=== PATIENT | female | born 1960 ===

== ENCOUNTER 2020-11-11 07:21 | Day surgery (SDC) | payer OTHER ==
[~2020-11-11 07:21] MED LIST: FORTAMET1000 MG PO; HUMULIN; IBESARTAN PO; NORVASC5 MG PO; ONGLYZA5 MG PO; SYNTHROID88 MCG PO
== END 2020-11-11 21:05 | disposition home or self-care (01) ==
LOC: CIR.AMB 07:21 → ADM 11:00 → CIR.AMB 11:15
PROVIDERS: ATTEND Orthopaedic Surgery Sports Medicine
DX: S83.242A Other tear of medial meniscus, current injury, left knee, initial encounter (principal); Z20.828 Contact with and (suspected) exposure to other viral communicable diseases